=== PATIENT | male | born 1965 | race Caucasian/White ===

== ENCOUNTER 2017-05-13 11:26 | Inpatient (IN) | payer MEDICAID ==
[~2017-05-13] VITALS: Ht 160 cm; Wt 95.3 kg
[2017-05-13 11:30] VITALS: BP 161/95
[2017-05-13] MEDS ORDERED: ASPIRIN 81 MG TAB.CHEW PO ONE (11:45)
[2017-05-13] MEDS ORDERED: NACL 0.9% 1,000 ML IV ONE (11:45)
[2017-05-13] MEDS ORDERED: MULTIVITAMIN-12 10 ML, THIAMINE 100 MG, MAGNESIUM SULFATE 50% 2,000 MG, FOLIC ACID 5 MG... IV ONE ×5 (11:55)
[2017-05-13] MEDS ORDERED: LORazepam 2 MG/ML VIAL IVP ONE (11:55)
[2017-05-13 12:15] LABS: BASOPHILS # (AUTO) 0.5 K/uL (0.00-0.22); BASOPHILS % (AUTO) 3.6 % (0.0-2.0); EOSINOPHILS # (AUTO) 0.2 K/uL (0-0.4); EOSINOPHILS % (AUTO) 1.6 % (0.0-4.0); HEMATOCRIT 35.4 % (36-52); HEMOGLOBIN 11.9 g/dL (12.0-18.0); LYMPHOCYTES # (AUTO) 1.3 K/uL (2.0-11.5); LYMPHOCYTES % (AUTO) 9.7 % (20.5-51.1); MEAN CORPUSCULAR HEMOGLOBIN 34 pg (27-31); MEAN CORPUSCULAR HGB CONC 34 g/dL (33-37); MEAN CORPUSCULAR VOLUME 102 fL (80-94); MONOCYTES # (AUTO) 0.5 K/uL (0.8-1.0); MONOCYTES % (AUTO) 3.5 % (1.7-9.3); NEUTROPHILS # (AUTO) 10.6 K/uL (1.8-7.7); NEUTROPHILS % (AUTO) 81.6 % (42.2-75.2); PLATELET COUNT (AUTO) 166 K/uL (140-450); RED BLOOD CELL COUNT(AUTO) 3.46 MIL/uL (4.20-6.10); RED CELL DISTRIBUTION WIDTH 17.6 % (11.6-13.7)
--- NOTE | 2017-05-13 12:15 | NUR ---
PATIENT BIB FAMILY C/O MID-STERNAL CHEST PAIN, RADIATES TO BL ARMS X 3 HOURS PRIOR TO ER ARRIVAL. HX OF HTN. PT STATES HIS FACE FEELS HOT.PT ALSO STATES HE HAS BEEN DRINKING FOR 1 WEEK STRAIGHT;PT IS SHAKY; DENIES N/V/D; SKIN IS PINK/WARM/DRY; AAOX4 WITH EVEN AND STEADY GAIT; LUNGS CLEAR BL; HR EVEN AND REGULAR; PT DENIES ANY FEVER OR COUGH AT THIS TIME; PATIENT STATES PAIN OF 7/10 CHEST PAIN AT THIS TIME;PATIENT POSITIONED FOR COMFORT; HOB ELEVATED; BEDRAILS UP X2; BED DOWN. ALL MONITORS IN PLACED;ER MD MADE AWARE OF PT STATUS.
--- NOTE | 2017-05-13 12:23 | NUR ---
CALLED PHARMACY FOR THE BANANA BAG;THEY SAID THEY WILL SEND IT TO ER.
[2017-05-13 12:29] LABS: PROTHROMBIN TIME 14.9 secs (10.8-13.4)
[2017-05-13 12:30] LABS: WHITE BLOOD COUNT (AUTO) 13.1 K/uL (4.8-10.8)
[2017-05-13 12:32] LABS: ALBUMIN 3.9 g/dL (3.4-5.0); CREATININE 1.3 mg/dL (0.7-1.3); TOTAL BILIRUBIN 1.1 mg/dL (0.0-1.0)
[2017-05-13 12:36] LABS: ACETAMINOPHEN < 0.5 ug/ml (10-30); SALICYLATE < 2.8 mg/dL (2.8-20.0)
[2017-05-13 12:37] LABS: ANION GAP 28.3 (8-16); CARBON DIOXIDE 16.2 mmol/L (21-32); POTASSIUM 3.5 mmol/L (3.5-5.1)
[2017-05-13] MEDS ORDERED: LACTULOSE 20 GM/30 ML UDC PO ONE (13:15)
[2017-05-13] MEDS ORDERED: CALCIUM CHLORIDE 10% 1,000 MG in NACL 0.9% 100 ML IV ONE (13:15)
--- NOTE | 2017-05-13 13:22 | NUR ---
CALLED PHARMACY CA CHLORIDE IS NOT LOADED IN [facility];THEY SAID THEY WILL BRING IT TO ER.
[2017-05-13] MEDS ORDERED: CALCIUM GLUCONATE 10% 1,000 MG in NACL 0.9% 100 ML IV SCH (14:00)
[2017-05-13] MEDS ORDERED: ONDANSETRON 4 MG/2 ML VIAL IM/IVP PRN (14:15)
[2017-05-13] MEDS ORDERED: LORazepam 0.5 MG TAB PO PRN (14:15)
[2017-05-13] MEDS ORDERED: ALUMINUM HYD/MAG/SIMETHICONE 30 ML UDC PO PRN (14:15)
[2017-05-13] MEDS ORDERED: DOCUSATE SODIUM 100 MG GELCAP PO PRN (14:15)
[2017-05-13] MEDS ORDERED: NITROGLYCERIN 0.4 MG TAB SL PRN (14:15)
--- NOTE | 2017-05-13 14:16 | NUR ---
Patient will be admitted to care of DR YOO. Admited to TELE. Will go to [id number] . Belongings list completed. Report to MARIUM COPPOLA.
--- NOTE | 2017-05-13 14:30 | NUR ---
PT ARRIVED ON THE UNIT WITH 2 ER NURSES ON A GURNEY. PT IS AWAKE AND ORIENTED. PT WALKED FROM THE GURNEY IN THE DOORWAY TO THE BED. GAIT NORMAL, STEADY. IV ON R AC 20G. BANANA BAG INFUSING. DENIES ANY CHEST PAIN AT THIS TIME. JUST PRESSURE. INTRODUCED MYSELF AND UPDATED THE BOARD. SKIN IS INTACT. BILATERAL DRY FEET ON PLANTAR. BLE PITTING EDEMA + 2. PT IS CURRENTLY NPO EXCEPT MEDS. PT IS THIRSTY. GAVE PT ICE CHIPS. WILL AWAIT ORDERS.
[2017-05-13 14:54] LABS: THYROID STIMULATING HORMONE 3.71 uIU/mL (0.34-3.74)
[2017-05-13 15:30] VITALS: BP 133/57
[2017-05-13] MEDS: NACL 0.9% 1,000 ML IV SCH (16:30)
--- NOTE | 2017-05-13 16:30 | NUR ---
STARTED NS 1,000ML BAG. IV ON RIGHT AC 20G INFUSING @60ML/HR. IV SITE INTACT. PT AMBULATED TO BATHROOM INDEPENDENTLY. INSTRUCTED PT USE OF CALL LIGHT. PT VERBALIZED UNDERSTANDING. WILL CONTINUE TO MONITOR.
[2017-05-13 18:10] LABS: PHOSPHORUS 6.1 mg/dL (2.5-4.9)
--- NOTE | 2017-05-13 18:10 | NUR ---
PT GAVE URINE SAMPLE. HAD STUDENT TAKE TO THE LAB. BLADDER SCAN DONE. NO RESIDUAL URINE IN BLADDER. US TECH HERE TO DO THE LIVER US. PT TOLERATED WELL.
--- NOTE | 2017-05-13 18:14 | NUR ---
LAB CALLED WITH CRITICAL RESULTS: MAG 0.2. NOTIFIED DR. MOONEY REGARDING RESULTS. DR FERGUSON WILL PUT IN ORDERS TO REPLENISH.
[2017-05-13 18:16] LABS: MAGNESIUM 0.2 mg/dL (1.8-2.4)
[2017-05-13] MEDS ORDERED: MAG SULF 2000 MG/WATER PREMIX 100 ML IV SCH (18:30)
[2017-05-13 18:31] LABS: BARBITURATE, URINE NEG. ng/ml (NEG <=200); BENZODIAZEPINE, URINE POS. ng/mL (NEG <=200); CANNABINOID, URINE NEG. ng/mL (NEG <=50); COCAINE, URINE NEG. ng/mL (NEG <=300); OPIATE, URINE NEG. ng/mL (NEG <=2000); PHENCYCLIDINE SCREEN,URINE NEG. ng/mL (NEG <=25)
--- NOTE | 2017-05-13 18:34 | NUR ---
LAB CALLED WITH CRITICAL RESULTS: CALCIUM 5.4. REPORTED TO NAILA TEAM.
[2017-05-13] MEDS ORDERED: MAGNESIUM OXIDE 400 MG TAB PO SCH (18:35)
--- NOTE | 2017-05-13 19:00 | NUR ---
R AC 20G IV GOT PULLED OUT. CLEANED UP PT AND RESTARTED IV ON R HAND 22G. PT TOLERATED WELL.
[2017-05-13] MEDS ORDERED: CALCIUM GLUCONATE 10% 1,000 MG in NACL 0.9% 50 ML IV SCH (19:15)
[2017-05-13] MEDS: LORazepam 2 MG/ML VIAL IM/IVP PRN (19:16)
--- NOTE | 2017-05-13 19:25 | NUR ---
ENDORSED PT REPORT TO MANAGER PRIMARY NURSE AT BEDSIDE FOR CONTINUITY OF CARE. PT IN STABLE CONDITION.
--- NOTE | 2017-05-13 19:30 | NUR ---
RECEIVED REPORT FROM DAY RN. PATIENT RESTING IN BED, NO S/S OF ACUTE DISTRESS NOTED, RESPIRATION EVEN AND UNLABORED, IV PATENT AND INTACT, INFUSING MAGNESIUM SULF AT 25ML/HR, PLAN OF CARE DISCUSSED, VERBALIZED UNDERSTAND, CALL LIGHT WITHIN REACH, SAFETY MEASURE ENSURED, WILL CONTINUE TO MONITOR.
[2017-05-13 20:00] VITALS: BP 119/76
[2017-05-13] MEDS: ATORVASTATIN 20 MG TAB PO SCH (20:57)
[2017-05-13] MEDS ORDERED: CALCIUM GLUCONATE 10% 1000 MG/10 ML VIAL ONE (21:29)
--- NOTE | 2017-05-13 22:02 | NUR ---
PATIENT HAD BOWEL MOVEMENT X1 AND RESTING IN BED AT THIS TIME. RESPIRATION EVEN AND UNLABORED, NO S/S OF ACUTE DISTRESS NOTED, CALL LIGHT WITHIN REACH, SAFETY MEASURE ENSURED, WILL CONTINUE TO MONITOR.
--- NOTE | 2017-05-13 22:46 | NUR ---
CALCIUM GLUCONATE FINISHED, SECOND BAG OF MAGNESIUM SULF STARTED, PATIENT RESTING IN BED, NO S/S OF ACUTE DISTRESS NOTED, RESPIRATION EVEN AND UNLABORED, SAFETY MEASURE ENSURED, WILL CONTINUE TO MONITOR.
[2017-05-14] VITALS: BP 126/77
--- NOTE | 2017-05-14 00:24 | NUR ---
PATIENT SLEEPING IN BED, NO S/S OF ACUTE DISTRESS NOTED, RESPIRATION EVEN AND UNLABORED, CALL LIGHT WITHIN REACH, SAFETY MEASURE ENSURED, WILL CONTINUE TO MONITOR.
[2017-05-14] MEDS: ACETAMINOPHEN 325 MG TAB PO PRN (01:36)
--- NOTE | 2017-05-14 02:45 | NUR ---
PATIENT SLEEPING IN BED, NO S/S OF ACUTE DISTRESS NOTED, RESPIRATION EVEN AND UNLABORED, CALL LIGHT WITHIN REACH, SAFETY MEASURE ENSURED, WILL CONTINUE TO MONITOR.
[2017-05-14 04:00] VITALS: BP 125/81
[2017-05-14 04:56] LABS: BASOPHILS % (AUTO) 0.6 % (0.0-2.0); EOSINOPHILS # (AUTO) 0.1 K/uL (0-0.4); EOSINOPHILS % (AUTO) 1.9 % (0.0-4.0); HEMATOCRIT 32.2 % (36-52); HEMOGLOBIN 10.3 g/dL (12.0-18.0); LYMPHOCYTES # (AUTO) 1.1 K/uL (2.0-11.5); LYMPHOCYTES % (AUTO) 14.6 % (20.5-51.1); MEAN CORPUSCULAR HEMOGLOBIN 33 pg (27-31); MEAN CORPUSCULAR HGB CONC 32 g/dL (33-37); MEAN CORPUSCULAR VOLUME 103 fL (80-94); MONOCYTES # (AUTO) 0.8 K/uL (0.8-1.0); MONOCYTES % (AUTO) 10.6 % (1.7-9.3); NEUTROPHILS # (AUTO) 5.7 K/uL (1.8-7.7); NEUTROPHILS % (AUTO) 72.3 % (42.2-75.2); PLATELET COUNT (AUTO) 84 K/uL (140-450); RED BLOOD CELL COUNT(AUTO) 3.14 MIL/uL (4.20-6.10); RED CELL DISTRIBUTION WIDTH 17.4 % (11.6-13.7); WHITE BLOOD COUNT (AUTO) 7.7 K/uL (4.8-10.8)
[2017-05-14 05:13] LABS: ANION GAP 20.1 (8-16); CARBON DIOXIDE 21.8 mmol/L (21-32); CREATININE 0.9 mg/dL (0.7-1.3)
[2017-05-14 05:18] LABS: MAGNESIUM 1.7 mg/dL (1.8-2.4); PHOSPHORUS 3.4 mg/dL (2.5-4.9)
[2017-05-14 05:19] LABS: CHOL/HDL RATIO 4.4 (1-4.5)
[2017-05-14 05:36] LABS: POTASSIUM 2.9 mmol/L (3.5-5.1)
--- NOTE | 2017-05-14 05:39 | NUR ---
RECEIVED CRITICAL LAB POTASSIUM 2.9, PAGED DR. TALEBRT.
--- NOTE | 2017-05-14 05:45 | NUR ---
MADE DR. ROTH AWARE PATIENT'S POTASSIUM 2.9
[2017-05-14] MEDS: NACL 0.9% 1,000 ML IV SCH (06:52)
--- NOTE | 2017-05-14 06:59 | NUR ---
MAGNESIUM SULF STARTED, PATIENT TOLERATED WELL. WILL CONTINUE TO MONITOR.
[2017-05-14] MEDS ORDERED: MAG SULF 2000 MG/WATER PREMIX 100 ML IV SCH (07:00)
[2017-05-14] MEDS ORDERED: POTASSIUM CHLORIDE 40 MEQ, LIDOCAINE 1% 25 MG in NACL 0.9% 250 ML IV ONE (07:00)
--- NOTE | 2017-05-14 07:23 | NUR ---
ENDORSED PLAN OF CARE TO DAY RN, PATIENT IS IN STABLE CONDITION. NO S/S OF ACUTE DISTRESS.
--- NOTE | 2017-05-14 07:27 | NUR ---
RECEIVED HANDOFF REPORT FROM AM RN. PATIENT SLEEPING. IV SITE PATENT AND INTACT. NO SIGNS AND SYMPTOMS OF ACUTE DISTRESS NOTED. CALL LIGHT WITHIN REACH. WILL CONTINUE TO MONITOR.
[2017-05-14 07:57] VITALS: BP 135/83
[2017-05-14] MEDS ORDERED: POTASSIUM CHLORIDE 40 MEQ, LIDOCAINE 1% 25 MG in NACL 0.9% 250 ML IV SCH ×2 (07:57→11:00)
[2017-05-14 08:37] LABS: T4 (THYROXINE) 7.7 ug/dL (4.5 - 12.0)
--- NOTE | 2017-05-14 08:37 | NUR ---
PATIENT HAS BEEN SCREENED AND CATEGORIZED HIGH NUTRITION RISK. PATIENT WILL BE SEEN WITHIN 1-2 DAYS OF ADMISSION. 05/14/17-05/15/[address]
[2017-05-14] MEDS: LISINOPRIL 5 MG TAB PO SCH (09:33)
[2017-05-14] MEDS: MULTIVITAMIN 1 TAB PO SCH (09:34)
[2017-05-14] MEDS: ASPIRIN 81 MG TAB.CHEW PO SCH (09:34)
[2017-05-14] MEDS: THIAMINE 100 MG TAB PO SCH (09:34)
[2017-05-14] MEDS: FOLIC ACID 1 MG TAB PO SCH (09:34)
[2017-05-14] MEDS: METOPROLOL 25 MG TAB PO SCH (09:34)
[2017-05-14] MEDS: LACTULOSE 20 GM/30 ML UDC PO SCH ×4 (09:35→20:40)
[2017-05-14] MEDS: MORPHINE SULFATE 2 MG/ML SYR IVP PRN ×2 (09:40→13:48)
--- NOTE | 2017-05-14 09:45 | NUR ---
PATIENT GIVEN AM MEDICATIONS. PATIENT 03/17PAIN. MEDICATED ORDERED. CALL LIGHT WITHIN REACH. WILL CONTINUE TO MONITOR.
--- NOTE | 2017-05-14 11:57 | NUR ---
PATIENT AWAKE AND ALERT. FAMILY AT BEDSIDE. NO SIGNS AND SYMPTOMS OF ACUTE DISTRESS NOTED. CALL LIGHT WITHIN REACH. WILL CONTINUE TO MONITOR.
[2017-05-14 12:00] VITALS: BP 145/91
[2017-05-14] MEDS: CALCIUM CARB/VIT-D 500 MG/200 IU 1 TAB PO SCH ×3 (12:05→20:40)
--- NOTE | 2017-05-14 13:41 | NUR ---
PATIENT AWAKE AND ALERT. IV SITE NO LONGER INTACT. WILL START NEW IV LINE. NO SIGNS AND SYMPTOMS OF ACUTE DISTRESS NOTED. CALL LIGHT WITHIN REACH. WILL CONTINUE TO MONITOR.
--- NOTE | 2017-05-14 14:12 | NUR ---
05/14/17 RD INITIAL ASSESSMENT COMPLETED PLEASE REFER TO NUTRITION ASSESSMENT UNDER CARE ACTIVITY FOR ESTIMATED NUTRITIONAL NEEDS. 1. CONTINUE CARDIAC DIET 2. RD TO FOLLOW UP WITHIN 3-5 DAYS; MODERATE RISK BRIANNE TROY RD
[2017-05-14] MEDS ORDERED: CALCIUM GLUCONATE 10% 1,000 MG in NACL 0.9% 50 ML IV SCH ×2 (15:00→18:00)
[2017-05-14 15:33] LABS: MAGNESIUM 2.7 mg/dL (1.8-2.4); POTASSIUM 3.5 mmol/L (3.5-5.1)
[2017-05-14 16:00] VITALS: BP 127/76
[2017-05-14] MEDS: HYDROcodone/APAP 7.5/325 MG 1 TAB PO PRN (17:41)
--- NOTE | 2017-05-14 17:43 | NUR ---
EVENING MEDS GIVEN/ PATIENT STATES 8/10 PAIN. MEDICATED WITH NORCO PER MD.
--- NOTE | 2017-05-14 19:12 | NUR ---
ENDORSED PLAN OF CARE TO PM RN. PATIENT IN STABLE CONDITION. CALL LIGHT WITHIN REACH. SAFETY MEASURES ENSURED.
--- NOTE | 2017-05-14 19:13 | NUR ---
RECEIVED REPORT FROM AM NURSE. PT IS AOX4, NO S/S OF DISTRESS. NO COMPLAINTS OF PAIN AT THIS TIME. IS ON TELE MONITORING. WITH IV ON THE RIGHT FA 22 G, INTACT AND PATENT. SKIN IS INTACT. INITIAL ASSESSMENT DONE. RE-ORIENTED PATIENT TO THE UNIT, VERBALIZED UNDERSTANDING. WILL CONTINUE TO MONITOR. ALL NEEDS ATTENDED. CALL LIGHT WITHIN REACH. SAFETY CHECKS IN PLACE.
[2017-05-14 20:00] VITALS: BP 132/91
[2017-05-14] MEDS: GABAPENTIN 100 MG CAP PO SCH (20:40)
[2017-05-14] MEDS: ATORVASTATIN 20 MG TAB PO SCH (20:41)
[2017-05-14] MEDS: RIFAXIMIN 550 MG TAB PO SCH (20:41)
--- NOTE | 2017-05-14 20:41 | NUR ---
DUE MEDS GIVEN, WELL TOLERATED BY THE PATIENT. WILL CONTINUE TO MONITOR.
[2017-05-15] VITALS (11 sets, daily range): BP systolic 115–148; BP diastolic 67–92
--- NOTE | 2017-05-15 | NUR ---
VITAL SIGNS STABLE. NO S/S OF DISTRESS. NO COMPLAINTS OF PAIN AT THIS TIME. WILL CONTINUE TO MONITOR. ALL NEEDS ATTENDED. CALL LIGHT WITHIN REACH. SAFETY CHECKS IN PLACE.
[2017-05-15] MEDS: NACL 0.9% 1,000 ML IV SCH ×2 (00:10→16:57)
--- NOTE | 2017-05-15 02:10 | NUR ---
MADE ROUNDS, PATIENT ASLEEP. NO S/S OF DISTRESS. WILL CONTINUE TO MONITOR.
--- NOTE | 2017-05-15 04:00 | NUR ---
VITAL SIGNS STABLE. NO S/S OF DISTRESS. NO COMPLAINTS OF PAIN. WILL CONTINUE TO MONITOR. ALL NEEDS ATTENDED. CALL LIGHT WITHIN REACH. SAFETY CHECKS IN PLACE.
[2017-05-15] MEDS: ACETAMINOPHEN 325 MG TAB PO PRN (05:00)
--- NOTE | 2017-05-15 05:00 | NUR ---
COMPLAINED OF A HEADACHE 11/15. GAVE PRN TYLENOL. WILL CONTINUE TO MONITOR. +
--- NOTE | 2017-05-15 06:38 | NUR ---
ELEVATED THE EXTREMITY OF PATIENT PER DR. RODRIGUEZ'S ORDER.
[2017-05-15 06:43] LABS: BASOPHILS # (AUTO) 0.1 K/uL (0.00-0.22); BASOPHILS % (AUTO) 1.3 % (0.0-2.0); EOSINOPHILS # (AUTO) 0.1 K/uL (0-0.4); HEMOGLOBIN 10.6 g/dL (12.0-18.0); LYMPHOCYTES # (AUTO) 1.2 K/uL (2.0-11.5); LYMPHOCYTES % (AUTO) 20.5 % (20.5-51.1); MEAN CORPUSCULAR HEMOGLOBIN 34 pg (27-31); MEAN CORPUSCULAR HGB CONC 33 g/dL (33-37); MEAN CORPUSCULAR VOLUME 103 fL (80-94); MONOCYTES # (AUTO) 0.7 K/uL (0.8-1.0); MONOCYTES % (AUTO) 10.8 % (1.7-9.3); NEUTROPHILS # (AUTO) 3.9 K/uL (1.8-7.7); NEUTROPHILS % (AUTO) 65.4 % (42.2-75.2); PLATELET COUNT (AUTO) 78 K/uL (140-450); RED BLOOD CELL COUNT(AUTO) 3.11 MIL/uL (4.20-6.10); RED CELL DISTRIBUTION WIDTH 18.3 % (11.6-13.7)
[2017-05-15 06:47] LABS: ANION GAP 16.1 (8-16); CARBON DIOXIDE 23.1 mmol/L (21-32); CREATININE 0.8 mg/dL (0.7-1.3); POTASSIUM 3.2 mmol/L (3.5-5.1)
[2017-05-15 06:52] LABS: MAGNESIUM 1.6 mg/dL (1.8-2.4)
--- NOTE | 2017-05-15 07:23 | NUR ---
RECEIVED REPORT FROM PM NURSE FOR CONTINUITY OF CARE. PT AAO. INITIAL ASSESSMENT DONE. SKIN IS INTACT, WARM, AND DRY. IV IS INTACT, NO REDNESS OR SWELLING NOTED. PT DENIES C/O CHEST PAIN, SOB, OR RESTLESSNESS. NO S/S OF DISTRESS. PT'S LOWER EXTREMITY ELEVATED PER MD ORDER. DISCUSSED PLAN OF CARE TO PT, VERBALIZED UNDERSTANDING. SAFETY MEASURES IN PLACED. SIDE RAILS UP, BED LOCKED IN LOW POSITION, CALL LIGHT WITHIN REACH. WILL CONTINUE TO MONITOR.
--- NOTE | 2017-05-15 07:23 | NUR ---
ENDORSED TO AM SHIFT FOR CONTINUITY OF CARE, IN STABLE CONDITION.
--- NOTE | 2017-05-15 08:30 | NUR ---
PT IS TACHYCARDIC, HEART RATE AT 130 AT REST, 150 WHEN PT IS UP AND AMBULATING. PT DENIES CHEST PAIN, OR SOB. NO S/S OF DISTRESS. HAND TREMORS NOTED. WILL MEDICATE WITH PRN ATIVAN PER MD ORDER. WILL CONTINUE TO MONITOR.
[2017-05-15] MEDS: LACTULOSE 20 GM/30 ML UDC PO SCH ×2 (08:39→21:00)
[2017-05-15] MEDS: FOLIC ACID 1 MG TAB PO SCH (08:40)
[2017-05-15] MEDS: ASPIRIN 81 MG TAB.CHEW PO SCH (08:40)
[2017-05-15] MEDS: FUROSEMIDE 40 MG/4 ML VIAL IVP SCH (08:40)
[2017-05-15] MEDS: CALCIUM CARB/VIT-D 500 MG/200 IU 1 TAB PO SCH ×4 (08:41→20:31)
[2017-05-15] MEDS: METOPROLOL 25 MG TAB PO SCH ×2 (08:41→20:32)
[2017-05-15] MEDS: LISINOPRIL 5 MG TAB PO SCH (08:41)
[2017-05-15] MEDS: LORazepam 2 MG/ML VIAL IM/IVP PRN ×2 (08:41→13:16)
[2017-05-15] MEDS: THIAMINE 100 MG TAB PO SCH (08:41)
[2017-05-15] MEDS: RIFAXIMIN 550 MG TAB PO SCH (08:42)
[2017-05-15] MEDS: MULTIVITAMIN 1 TAB PO SCH (08:42)
--- NOTE | 2017-05-15 09:42 | NUR ---
HR REMAINS IN 130'S AT REST, PT STILL DENIES CHEST PAIN OR DISCOMFORT, DENIES SOB, DR DAVIDSON MADE AWARE OF CONTINUING TACHYCARDIA. DR DAVIDSON ALSO MADE AWARE OF LAB RESULTS K 3.2, MAG 1.6, CA 7.1, PLATELETS 78.
--- NOTE | 2017-05-15 09:50 | NUR ---
LACTATION SPECIALIST AT BEDSIDE
--- NOTE | 2017-05-15 10:07 | NUR ---
EKG DONE. DR GALLOWAY AT [facility]. EKG REVIEWED BY DR NARVAEZ. AWAITING ORDERS FOR CARDIZEM
[2017-05-15] MEDS ORDERED: DILTIAZEM 25 MG/5 ML VIAL IVP SCH (10:15)
--- NOTE | 2017-05-15 10:26 | NUR ---
1OMG DILTIAZEM GIVEN TO PT PER MD ORDER. TOLERATED WELL. BP @ 118/67, HR 131. PT REMAINS ON PICKLE SORTER. WILL MONITOR CLOSELY.
[2017-05-15] MEDS: POTASSIUM CHLORIDE 10 MEQ TABER PO SCH ×2 (10:30→13:53)
[2017-05-15] MEDS ORDERED: MAG SULF 2000 MG/WATER PREMIX 50 ML IV SCH (10:30)
--- NOTE | 2017-05-15 10:41 | NUR ---
PT RESTING QUIETLY IN NAD, RESP EVEN UNLABORED, HR 125, BP 120/75 NOW, DENIES SOB, DENIES CHEST PAIN, PT REMAINS ON WOOD BARKER, WILL CONTINUE TO MONITOR.
--- NOTE | 2017-05-15 11:26 | NUR ---
REASSESSED PT. PT DENIES PAIN OR DISCOMFORT. NO S/S DISTRESS. HR 119, HR 115/77, O2 96%. WILL CONTINUE TO MONITOR.
--- NOTE | 2017-05-15 13:16 | NUR ---
PT REMAINS TACHYCARDIC, HR @ 125. TREMORS NOTED. PRN ATIVAN GIVEN PER MD ORDER. TOLERATED WELL. WILL CONTINUE TO MONITOR.
--- NOTE | 2017-05-15 13:24 | NUR ---
NOTICED PT WALKING TO THE HALLWAY. INSTRUCTED PT TO REMAIN ON HIS BED. EDUCATED PT ON THE IMPORTANCE OF COMPLYING TO HIS MEDICAL PLANS. PT VERBALIZED UNDERSTANDING. PT REMAIN ON ASSURANCE MANAGER. VSS. WILL CONTINUE TO MONITOR.
--- NOTE | 2017-05-15 14:51 | NUR ---
PT RESTING IN BED COMFORTABLY. NO S/S OF DISTRESS. RESP EVEN AND UNLABORED. DENIES NEEDS AT THIS TIME. SAFETY MEASURES IN PLACED. WILL CONTINUE TO MONITOR. Addendum: 05/15/17 at 1818 by Kvng Vivar RN HR 115-117 ON THE MONITOR.
--- NOTE | 2017-05-15 15:19 | NUR ---
SCAR FROM AN OLD INJURY AND PURPLE DISCOLORATION NOTED ON PT'S POSTERIOR LLE. PHOTOGRAPHED, AND FILED ON PT'S RECORD. PT STATED THAT IT WAS FROM AN OLD INJURY. NO SWELLING OR BLEEDING NOTED. Addendum: 05/15/17 at 1523 by Kvng Vivar RN SCAR IS ABOUT 12 COM LONG.
[2017-05-15] MEDS: HYDROcodone/APAP 7.5/325 MG 1 TAB PO PRN (15:32)
[2017-05-15] MEDS ORDERED: LORazepam 2 MG/ML VIAL IVP PRN (16:05)
--- NOTE | 2017-05-15 16:30 | NUR ---
US TECH AT BEDSIDE.
--- NOTE | 2017-05-15 17:08 | NUR ---
PT SITTING IN BED, WATCHING TV. NO S/S OF DISTRESS OR SOB. TREMORS NOTED. PT REMAIN ON CARDIAC MONITORING. DENIES DISCOMFORT OR FURTHER NEEDS AT THIS TIME.R
--- NOTE | 2017-05-15 18:19 | NUR ---
PRN ATIVAN GIVEN FOR ANXIOUSNESS, UNABLE TO SIT STILL, AND HAS SLIGHT HEADACHE. TREMORS CONTINUES. HEART RATE 130-150 WHEN MOVING, 120-130 AT REST. WILL CONTINUE TO MONITOR.
--- NOTE | 2017-05-15 19:25 | NUR ---
ENDORSED TO PM SHIFT FOR CONTINUITY OF CARE, PT IN STABLE CONDITION.
--- NOTE | 2017-05-15 19:26 | NUR ---
RECD. RESTING IN BED, AWAKE, A/OX4. RESPIRATION EVEN AND UNLABORED, WATCHING TV. IV OF NS AT 10 ML/HR INFUSING, RIGHT FA G22. AMBULATORY TO THE BR. PLAN OF CARE FOR THE SHIFT DISCUSSED. VERBALIZED UNDERSTANDING. DENIES PAIN 0/10.
--- NOTE | 2017-05-15 20:20 | NUR ---
CHICK ROOM SUPERVISOR NOTIFIED PATIENT TRYING TO WALKED OUT OF THE ROOM. ASSISTED BACK TO BED.
[2017-05-15] MEDS: GABAPENTIN 100 MG CAP PO SCH (20:31)
[2017-05-15] MEDS: ATORVASTATIN 20 MG TAB PO SCH (20:32)
[2017-05-15] MEDS: LORazepam 1 MG TAB PO SCH (20:33)
--- NOTE | 2017-05-15 20:35 | NUR ---
SEEMS WITH ANXIETY. DUE PO MEDICATIONS GIVEN. REFUSED LACTULOSE, STATED HE HAD ALREADY SIX LOOSE BM, EXPLAINED THE IMPORTANCE OF TAKING IT, WANTS TO TAKE LACTULOSE IN THE MORNING.
[2017-05-15] MEDS ORDERED: RIFAXIMIN 550 MG TAB PO SCH (21:00)
--- NOTE | 2017-05-15 21:00 | NUR ---
ENDORSED TO MARIUM ROBLES FOR CONTINUITY OF CARE.
--- NOTE | 2017-05-15 21:01 | NUR ---
RECEIVED REPORT FROM NATHAN MARINO. PT IS ALERT, BUT IS CONFUSED. WITH AN IV ON THE RFA 22G, INTACT AND PATENT. NO S/S OF DISTRESS. NO COMPLAINTS OF PAIN. NOTED WITH BRUISING ON THE LLE. RE-ORIENTED PATIENT TO THE UNIT, VERBALIZED UNDERSTANDING. WILL CONTINUE TO MONITOR. ALL NEEDS ATTENDED. CALL LIGHT WITHIN REACH. SAFETY CHECKS IN PLACE.
--- NOTE | 2017-05-15 23:10 | NUR ---
PT SEEN WALKING DOWN THE HALLS CONFUSED AND WITHOUT IV ACCESS, ASKED THE PATIENT WHAT IS WRONG, SAID HE'S CONFUSED. INFORMED DR. TALBERT OF HIS CONFUSION AND WENT TO SEE THE PATIENT.
--- NOTE | 2017-05-15 23:23 | NUR ---
RESTARTED IV TO THE LEFT HAND 24 G, INTACT AND PATENT.
--- NOTE | 2017-05-15 23:30 | NUR ---
PT SEEN WALKING OUT OF THE HOSPITAL, CALLED SECURITY AND INFORMED CHARGE NURSE. INFORMED MD THAT PT ATTEMPTED TO LEAVE THE HOSPITAL, WENT TO TALK TO THE PATIENT.
[2017-05-16] VITALS: BP 140/90
[2017-05-16] MEDS: HYDROcodone/APAP 7.5/325 MG 1 TAB PO PRN
--- NOTE | 2017-05-16 | NUR ---
CHANGED PATIENT'S ROOM TO BE CLOSER TO NURSE'S STATION. CHARGE NURSE REINSERTED AN IV TO THE RIGHT FOREARM 22 G, INTACT AND PATENT. WILL CONTINUE TO MONITOR.
--- NOTE | 2017-05-16 01:10 | NUR ---
PATIENT'S IV WAS SEEN PULLED OUT OF THE PATIENT, PATIENT SAID HE WANTED TO URINATE AND REMOVED THE IV. TOLD PATIENT TO INFORM US WHENEVER HE WANTED TO URINATE. PAGED DR. TALBERT IN REGARDS TO THE MULTIPLE IV PULLING OUT AND HIS CONFUSION.
--- NOTE | 2017-05-16 01:35 | NUR ---
INFORMED DR. TALBERT IN REGARDS TO THE PATIENT REMOVING IV MULTIPLE TIMES. SAID IT WAS OKAY NOT TO RE-INSERT THE IV INTO THE PATIENT. SAID HE WILL ORDER SOMETHING FOR THE PATIENT TO SLEEP.
[2017-05-16 04:00] VITALS: BP 144/98
[2017-05-16] MEDS ORDERED: LORazepam 1 MG TAB PO SCH ×2 (04:00→10:50)
--- NOTE | 2017-05-16 04:15 | NUR ---
TOLD DR. TALBERT THAT THE PATIENT WAS ROAMING THE UNIT AGAIN AND THAT SECURITY WAS CALLED, SAID HE WILL ORDER A DOSE OF ATIVAN 1 MG ONCE RIGHT NOW.
--- NOTE | 2017-05-16 04:45 | NUR ---
PATIENT WAS SEEN LEAVING THE HOSPITAL, THE CHARGE NURSE AND SEVERAL NURSES FOLLOWED THE PATIENT. TOLD DR. TALBERT THAT THE PATIENT WAS LEAVING THE HOSPITAL BECAUSE HE WANTED FRESH AIR. DR. TALBERT WAS TALKING TO THE PATIENT IN REGARDS TO HIS STAY HERE IN THE HOSPITAL AND ENCOURAGE HIM TO WRITE ABOUT WHAT HE WANTS WITH HIS PLAN OF CARE.
[2017-05-16] MEDS: LORazepam 1 MG TAB PO SCH (05:19)
--- NOTE | 2017-05-16 05:19 | NUR ---
GAVE THE SCHEDULED ATIVAN 1 MG TO PATIENT, DR. TALBERT SAID IT IS AN OKAY TO GIVE. WILL CONTINUE TO MONITOR. ALL NEEDS ATTENDED. CALL LIGHT WITHIN REACH. SAFETY CHECKS IN PLACE.
[2017-05-16 05:58] LABS: BASOPHILS # (AUTO) 0.2 K/uL (0.00-0.22); BASOPHILS % (AUTO) 2.5 % (0.0-2.0); EOSINOPHILS # (AUTO) 0.2 K/uL (0-0.4); EOSINOPHILS % (AUTO) 2.6 % (0.0-4.0); HEMATOCRIT 31.3 % (36-52); HEMOGLOBIN 10.3 g/dL (12.0-18.0); LYMPHOCYTES # (AUTO) 1.4 K/uL (2.0-11.5); LYMPHOCYTES % (AUTO) 19.4 % (20.5-51.1); MEAN CORPUSCULAR HEMOGLOBIN 35 pg (27-31); MEAN CORPUSCULAR HGB CONC 33 g/dL (33-37); MEAN CORPUSCULAR VOLUME 106 fL (80-94); MONOCYTES # (AUTO) 0.8 K/uL (0.8-1.0); MONOCYTES % (AUTO) 10.5 % (1.7-9.3); NEUTROPHILS # (AUTO) 4.7 K/uL (1.8-7.7); PLATELET COUNT (AUTO) 88 K/uL (140-450); RED BLOOD CELL COUNT(AUTO) 2.96 MIL/uL (4.20-6.10); RED CELL DISTRIBUTION WIDTH 19.2 % (11.6-13.7); WHITE BLOOD COUNT (AUTO) 7.3 K/uL (4.8-10.8)
[2017-05-16 06:43] LABS: ANION GAP 16.4 (8-16); CARBON DIOXIDE 23.1 mmol/L (21-32); POTASSIUM 3.5 mmol/L (3.5-5.1)
[2017-05-16 06:52] LABS: MAGNESIUM 1.4 mg/dL (1.8-2.4); PHOSPHORUS 3.8 mg/dL (2.5-4.9)
--- NOTE | 2017-05-16 07:19 | NUR ---
ENDORSED TO AM SHIFT NURSE FOR CONTINUITY OF CARE, IN STABLE CONDITION.
--- NOTE | 2017-05-16 07:20 | NUR ---
RECEIVED REPORT FROM NIGHT NURSE AT PT BEDSIDE. PT SLEEPING EASILY AWAKENS. ALERT AND ORIENTED TO TIME AND PLACE. PATIENT IS AMBULATORY. NO S/S OF RESPIRATORY DISTRESS ON ROOM AIR. DENIES CHEST PAIN. NO IV ACCESS, PER NIGHT RN OKAY TO HAVE NO ACCESS DUE TO PATIENTS COGNITIVE ABILITY TO RETAIN IV. BED IN LOWEST POSITION. CALL LIGHT WITHIN REACH.
[2017-05-16 08:00] VITALS: BP 133/77
[2017-05-16] MEDS ORDERED: MAGNESIUM OXIDE 400 MG TAB PO SCH (08:20)
--- NOTE | 2017-05-16 08:40 | NUR ---
PATIENT SEEN LEAVING ROOM AND WALKING AROUND INTO OTHER PATIENT ROOMS, ORIENTED PT TO RULES OF THE HOSPITAL AND ESCORTED PT BACK TO ROOM. PATIENT IS ALERT AND ORIENTED TO TIME AND PLACE, PERIODS OF CONFUSION.
[2017-05-16] MEDS: FOLIC ACID 1 MG TAB PO SCH (08:50)
[2017-05-16] MEDS: ASPIRIN 81 MG TAB.CHEW PO SCH (08:50)
[2017-05-16] MEDS: MULTIVITAMIN 1 TAB PO SCH (08:50)
[2017-05-16] MEDS: CALCIUM CARB/VIT-D 500 MG/200 IU 1 TAB PO SCH (08:50)
[2017-05-16] MEDS: METOPROLOL 25 MG TAB PO SCH (08:51)
[2017-05-16] MEDS: LISINOPRIL 5 MG TAB PO SCH (08:51)
[2017-05-16] MEDS: THIAMINE 100 MG TAB PO SCH (08:51)
[2017-05-16] MEDS: LACTULOSE 20 GM/30 ML UDC PO SCH (08:52)
[2017-05-16] MEDS: FUROSEMIDE 40 MG/4 ML VIAL IVP SCH (08:52)
[2017-05-16] MEDS ORDERED: ERYTHROMYCIN 250 MG TABEC PO SCH ×2 (09:00)
--- NOTE | 2017-05-16 09:20 | NUR ---
PATIENT SEEN BY DR. MANZANO AT PT BEDSIDE. PATIENT REMOVED GOWN AND MONITORING LEADS. ATTEMPTS TO WALK AROUND THE NURSING UNIT. PLACED PT BACK IN BED, PATIENT HAS PERIODS OF CONFUSION, NO S/S OF ACUTE DISTRESS NOTED.
[2017-05-16] MEDS ORDERED: LACT10SO11 PO (10:09)
[2017-05-16] MEDS ORDERED: LISI-424 PO (10:09)
[2017-05-16] MEDS ORDERED: THIA-8 PO (10:09)
[2017-05-16] MEDS ORDERED: ATOR20TA40 PO (10:09)
[2017-05-16] MEDS ORDERED: LORA-476 PO ×2 (10:09→11:13)
[2017-05-16] MEDS ORDERED: ASPI81CT27 PO (10:09)
[2017-05-16] MEDS ORDERED: ERY250 PO (10:09)
[2017-05-16] MEDS ORDERED: METO25TA PO (10:09)
[2017-05-16] MEDS ORDERED: FOLI1TAB90 PO (10:09)
[2017-05-16] MEDS ORDERED: FUROSEMIDE 40 MG TAB PO SCH (10:35)
--- NOTE | 2017-05-16 11:50 | NUR ---
PATIENT'S FATHER AT BEDSIDE TO TAKE PATIENT HOME. DR. MANZANO SPOKE WITH PATIENT AND FAMILY REGARDING MEDICATION RECONCILIATION AND FOLLOW UP PLAN OF CARE. PATIENT IS AMBULATORY. ALERT AND ORIENTED. ESCORTED BY FATHER TO FRONT LOBBY. VERBALIZED UNDERSTANDING OF TEACHING.
[2017-05-16] MEDS ORDERED: LACTULOSE 20 GM/30 ML UDC PO SCH ×2 (13:00)
== END 2017-05-16 12:00 | disposition home or self-care (01) | DRG 279 ==
LOC: MED 11:26 → MTU 14:24
PROVIDERS: ADMIT Family Medicine; ATTEND Family Medicine
DX: K72.90 Hepatic failure, unspecified without coma (principal); G92 Toxic encephalopathy; F10.221 Alcohol dependence with intoxication delirium; F10.231 Alcohol dependence with withdrawal delirium; R65.10 Systemic inflammatory response syndrome (SIRS) of non-infectious origin without acute organ dysfunction; I11.9 Hypertensive heart disease without heart failure; E83.42 Hypomagnesemia; E83.51 Hypocalcemia; K70.30 Alcoholic cirrhosis of liver without ascites; K21.9 Gastro-esophageal reflux disease without esophagitis; E11.9 Type 2 diabetes mellitus without complications; N62 Hypertrophy of breast; E78.1 Pure hyperglyceridemia; E78.00 Pure hypercholesterolemia, unspecified; Y90.0 Blood alcohol level of less than 20 mg/100 ml; I16.0 Hypertensive urgency; Z91.041 Radiographic dye allergy status; Z82.49 Family history of ischemic heart disease and other diseases of the circulatory system; R74.0 Nonspecific elevation of levels of transaminase and lactic acid dehydrogenase [LDH]
CPT/HCPCS: 36415; 71010; 76705; 80048; 80053; 80305; 82140; 82150; 82310; 83690; 83735; 83880; 84100; 84132; 84436; 84443; 84479; 84484; 85025; 85610; 85730; 87040; 87081; 93005; 93925; 93971; 96365; 96366; 96368; 96375; 99285; A9153; G0480; G0482; J0610; J1940; J2001; J2060; J2270; J3411; J3475; J3480; J3490; J7030; Q0092